=== PATIENT | male | born 1960 | race Caucasian/White ===

== ENCOUNTER 2018-07-31 19:58 | Emergency (ER) | payer BC ==
--- NOTE | 2018-07-31 21:46 | C.PDOC ---
History Of Present Illness patient presents with low left back pain since . No heavy lifting or trauma. Hurts to move. No incontinence of wither urine or feces. some fever, no chills. Tolerating po Time Seen by Provider: 07/31/18 21:46 Chief Complaint (Nursing): Back Pain History Per: Patient History/Exam Limitations: no limitations Onset/Duration Of Symptoms: Days (2) Current Symptoms Are (Timing): Still Present Quality Of Discomfort: Dull, Aching Severity: Moderate Pain Scale Rating Of: 4 Previous Symptoms: Back Pain Associated Symptoms: None. denies: Incontinence, New Weakness, New Numbness Exacerbating Factor(s): Turning, Movement, Sitting Recent travel outside of the [place]: No Additional History Per: Family Past Medical History Reviewed: Historical Data, Nursing Documentation, Vital Signs Vital Signs: Last Vital Signs Temp 101.1 F H 07/31/18 20:01 Pulse 102 H 07/31/18 20:01 Resp 20 07/31/18 20:01 BP 130/75 07/31/18 20:01 Pulse Ox 96 07/31/18 20:01 - Medical History PMH: Gastritis, HTN, Seizures Surgical History: Cholecystectomy Family History: States: No Known Family Hx - Social History Hx Tobacco Use: No Hx Alcohol Use: No Hx Substance Use: No - Immunization History Hx Influenza Vaccination: No Hx Pneumococcal Vaccination: No Review Of Systems Constitutional: Positive for: Fever. Negative for: Chills Cardiovascular: Negative for: Chest Pain Respiratory: Negative for: Shortness of Breath Gastrointestinal: Negative for: Abdominal Pain Genitourinary: Negative for: Dysuria Musculoskeletal: Positive for: Back Pain Skin: Negative for: Rash Neurological: Negative for: Weakness Psych: Negative for: Anxiety Physical Exam - Physical Exam Appears: Non-toxic, No Acute Distress Skin: Warm, Dry Head: Normacephalic Eye(s): bilateral: Normal Inspection Oral Mucosa: Moist Neck: Supple Chest: Symmetrical Cardiovascular: Rhythm Regular Respiratory: No Rales, No Rhonchi, No Wheezing Gastrointestinal/Abdominal: Soft, No Tenderness, No Distention Back: CVA Tenderness (left), No Vertebral Tenderness, Decreased ROM Extremity: Normal ROM Extremity: Bilateral: Atraumatic, Normal Color And Temperature, Normal ROM Pulses: Left Dorsalis Pedis: Normal, Right Dorsalis Pedis: Normal Neurological/Psych: Oriented x3, Normal Speech Gait: Steady ED Course And Treatment - Laboratory Results Result Diagrams: 07/31/18 22:35 07/31/18 22:35 O2 Sat by Pulse Oximetry: 96 Pulse Ox Interpretation: Normal Reevaluation Time: 01:31 Reassessment Condition: Improved Disposition Counseled Patient/Family Regarding: Studies Performed, Diagnosis, Need For Followup, Rx Given - Disposition Referrals: Naresh Interiano [Staff Provider] - Disposition: HOME/ ROUTINE Disposition Time: 21:46 Condition: FAIR Additional Instructions: Please return if symptoms recur Prescriptions: Ketorolac Tromethamine [Toradol] 10 mg PO TID PRN #15 tab PRN Reason: Pain, Moderate (4-7) Nitrofurantoin Macrocrystals [Macrobid] 1 cap PO BID #14 cap Instructions: Low Back Pain (DC), Urinary Tract Infection, Adult (DC), Cirrhosis (DC) Forms: [facility] (Slovak) - Clinical Impression Clinical Impression: Low back pain, UTI (urinary tract infection), Elevated liver enzymes
[2018-07-31 22:16] VITALS: RESP 18
[2018-07-31 22:40] LABS: BASO % 0.5 % (0.0-2.0); EOS # 0.1 K/uL (0.0-0.7); EOS % 0.6 % (0.0-4.0); LYMPH # 1.2 K/uL (1.0-4.3); LYMPH % 12.1 % (20.0-40.0); MEAN CELL VOLUME 90.5 fL (80.0-94.0); MEAN CORPUSCULAR HEMOGLOBIN 31.2 pg (27.0-31.0); MEAN CORPUSCULAR HGB CONC 34.5 g/dL (33.0-37.0); MEAN PLATELET VOLUME 11.2 fL (7.2-11.7); MONO # 1.2 K/uL (0.0-0.8); MONO % 12.3 % (0.0-10.0); NEUT # 7.2 K/uL (1.8-7.0); NEUT % 74.5 % (50.0-75.0); RBC 4.47 Mil/uL (4.40-5.90); RED CELL DISTRIBUTION WIDTH 13.2 % (11.5-14.5); WHITE BLOOD COUNT 9.6 K/uL (4.8-10.8)
[2018-07-31 22:46] LABS: SQUAMOUS EPITHIAL 15 /hpf (0-5); URINE BILIRUBIN NEGATIVE (NEGATIVE); URINE BLOOD NEGATIVE (NEGATIVE); URINE CLARITY Hazy (Clear); URINE COLOR Amber (YELLOW); URINE GLUCOSE (UA) NORMAL (Normal); URINE LEUKOCYTE ESTERASE TRACE Leu/uL (Negative); URINE PROTEIN NEGATIVE (NEGATIVE)
[2018-07-31 22:47] LABS: VENOUS BLOOD GAS PCO2 38 mmHg (40-60); VENOUS BLOOD GAS PO2 25 mm/Hg (30-55); VENOUS BLOOD PH 7.43 (7.32-7.43)
[2018-07-31 22:50] LABS: ALB/GLOB RATIO 1.5 (1.0-2.1); ALBUMIN 3.6 g/dL (3.5-5.0); ALT/SGPT 595 U/L (21-72); AST/SGOT 678 U/L (17-59); BLOOD UREA NITROGEN 21 mg/dL (9-20); CALCIUM 8.5 mg/dl (8.6-10.4); GFR NON-AFRICAN AMERICAN > 60
[2018-08-01] MEDS ORDERED: Iohexol 350mg/ml 100 ML ONE (00:21)
[2018-08-01 01:01] VITALS: BP 109/69; PULSE 86; TEMP 99.7
[2018-08-01 01:34] VITALS: O2SAT 96
--- NOTE | 2018-08-01 15:48 | CT ---
Date of service: 08/01/2018 PROCEDURE: CT Abdomen and Pelvis with contrast HISTORY: back pain, elevated liver enzymes COMPARISON: None. TECHNIQUE: Contrast dose: 100 mL Omnipaque 350 Radiation dose: Total exam DLP = 1207.2 mGy-cm. This CT exam was performed using one or more of the following dose reduction techniques: Automated exposure control, adjustment of the mA and/or kV according to patient size, and/or use of iterative reconstruction technique. FINDINGS: LOWER THORAX: Unremarkable. LIVER: Mildly nodular hepatic contour suggestive of cirrhosis. Scattered very small rounded low-density lesions are seen in the liver, nonspecific. Largest approximately 7 mm. Consider further evaluation with multiphasic contrast enhanced CT examination. No biliary dilatation. GALLBLADDER AND BILE DUCTS: Cholecystectomy PANCREAS: Unremarkable. No gross lesion or ductal dilatation. SPLEEN: Splenomegaly. The spleen measures approximately 16.8 cm in greatest dimension. ADRENALS: Unremarkable. No mass. KIDNEYS AND URETERS: 12 mm nonobstructing left lower pole renal calculus. Punctate calculus mid right and left kidney. Bilateral small rounded low-density masses common nonspecific. Likely cysts. Correlate with ultrasound. No hydronephrosis. VASCULATURE: Unremarkable. No aortic aneurysm. There is mild atherosclerotic calcification of the abdominal aorta. BOWEL: Unremarkable. No obstruction. No gross mural thickening. APPENDIX: Normal appendix. PERITONEUM: Unremarkable. No free fluid. No free air. LYMPH NODES: Unremarkable. No enlarged lymph nodes. BLADDER: Nondistended REPRODUCTIVE: Normal prostate BONES: No acute fracture. OTHER FINDINGS: None. IMPRESSION: Probable hepatic cirrhosis. Status post cholecystectomy. Splenomegaly. Bilateral nonobstructing renal calculi, largest 12 mm in lower pole left kidney. Scattered small nonspecific low-attenuation rounded hepatic lesions. Bilateral small rounded low-density renal masses, likely cysts. The preliminary findings for this examination were reported by [facility] at 08/01/2018 at 1:22 a.m.. There is discordant of this report with the preliminary findings. Scattered small low-density lesions in the liver were not described in the preliminary report of this examination.
== END 2018-08-01 01:59 | disposition home or self-care (01) ==
LOC: C.ER 19:58
DX: N39.0 Urinary tract infection, site not specified (principal); M54.5 Low back pain; R74.8 Abnormal levels of other serum enzymes
CPT/HCPCS: 74177; 80053; 81001; 82803; 85025; 96374; 99284; J1885; Q9967